=== PATIENT | female | born 1990 | race American Indian/Alaskan Native ===

== ENCOUNTER 2022-02-13 18:36 | Emergency (ER) | payer MEDICAID ==
--- NOTE | 2022-02-13 20:54 | XRay Report ---
Right foot 3 views INDICATION: Foot injury FINDINGS: MTP joints and IP joints appear normal. Midfoot alignment appears normal. Calcaneal brodie poe Signer Name: Jimbo Thayer MD Signed: 02/13/2022 8:50 PM Workstation Name: [id number]
--- NOTE | 2022-02-13 22:52 | Emergency Department Report ---
ED Lower Extremity HPI - General Chief Complaint: Extremity Injury, Lower Stated Complaint: TOE PAIN Time Seen by Provider: 02/13/22 20:46 Source: patient, EMS Mode of arrival: Stretcher Limitations: No Limitations - History of Present Illness Initial Comments: 31-year-old [place] female presents to the emergency department complaining of right foot pain which occurred after she was walking at home and had blunt trauma to the anterior aspect of her right foot striking the fourth and fifth toe in a crushing like fashion sending pain radiating across the lateral aspect of the foot. Since the incident pain has been dull throbbing worse with palpation and range of motion and movement as well as weightbearing. Pulses 2+ she reports mild swelling but no broken skin. No numbness or tingling is appreciated. -: Sudden Injury: Foot: Right Type of Injury: blunt Place: home Severity: mild Improves With: nothing Worsens With: nothing Context: direct blow Associated Symptoms: swelling - Related Data Previous Rx's Medication Instructions Recorded Last Taken Type Ketorolac [Toradol] 10 mg PO Q6H PRN #14 02/13/22 Unknown Rx Allergies Allergy/AdvReac Type Severity Reaction Status Date / Time No Known Allergies Allergy Verified 02/13/22 18:39 ED Review of Systems ROS: Stated complaint: TOE PAIN Other details as noted in HPI Comment: All other systems reviewed and negative ED Past Medical Hx - Medications Home Medications: Home Medications Medication Instructions Recorded Confirmed Last Taken Type Ketorolac [Toradol] 10 mg PO Q6H PRN #14 02/13/22 Unknown Rx ED Physical Exam - General Limitations: No Limitations General appearance: alert, in no apparent distress - Head Head exam: Present: atraumatic, normocephalic - Eye Eye exam: Present: normal appearance, PERRL Pupils: Present: normal accommodation - ENT ENT exam: Present: normal exam, mucous membranes moist, TM's normal bilaterally - Neck Neck exam: Present: normal inspection, full ROM. Absent: tenderness, meningismus, lymphadenopathy, thyromegaly - Respiratory Respiratory exam: Present: normal lung sounds bilaterally. Absent: respiratory distress - Cardiovascular Cardiovascular Exam: Present: regular rate, normal rhythm. Absent: systolic murmur, diastolic murmur, rubs, gallop - GI/Abdominal GI/Abdominal exam: Present: soft, normal bowel sounds - Extremities Exam Extremities exam: Present: normal inspection, tenderness, normal capillary refill - Expanded Lower Extremity Exam Right Foot/Toe exam: Present: tenderness (Lateral right foot along the fifth metatarsal and metatarsophalangeal joint), swelling. Absent: laceration, ecchymosis, erythema, puncture wound, calcaneal tenderness Neuro vascular tendon exam: Present: no vascular compromise. Absent: pulse deficit, abnormal cap refill - Back Exam Back exam: Present: normal inspection. Absent: CVA tenderness (R), CVA tenderness (L) - Neurological Exam Neurological exam: Present: alert, oriented X3, CN II-XII intact - Psychiatric Psychiatric exam: Present: normal affect, normal mood - Skin Skin exam: Present: warm, dry, intact, normal color. Absent: rash ED Course Vital Signs 02/13/22 18:37 Temperature 98.6 F Pulse Rate 109 H Blood Pressure 118/76 [Left] O2 Sat by Pulse 98 Oximetry ED Lower Extremity MDM - Radiology Data Radiology results: report reviewed [facility] [address] [place] [address] XRay Report Signed Patient: MIRANDA SANCHEZ MR#: [id number] 73 : 1990 Acct:[id number] Age/Sex: 31 / F ADM Date: 02/13/22 Loc: ED Attending Dr: Ordering Physician: DWIGHT HUMPHREY MD Date of Service: 02/13/22 Procedure(s): XR foot 3+V RT Accession Number(s): [id number] cc: ED MD MILAG[place] Fluoro Time In Minutes: Right foot 3 views INDICATION: Foot injury FINDINGS: MTP joints and IP joints appear normal. Midfoot alignment appears normal. Calcaneal spurring. Signer Name: Jimbo Zabala MD Signed: 02/13/2022 8:50 PM Workstation Name: [id number] Transcribed By: NANCY Dictated By: CIPRIANO ZABALA MD Electronically Authenticated By: CIPRIANO ZABALA MD Signed Date/Time: 02/13/222049 DD/ 49 TD/TT: Critical care attestation.: If time is entered above; I have spent that time in minutes in the direct care of this critically ill patient, excluding procedure time. ED Disposition Clinical Impression: Contusion of foot, right, Calcaneal spur, right Disposition: 01 HOME / SELF CARE / HOMELESS Is pt being admited?: No Does the pt Need Aspirin: No Condition: Stable Instructions: Foot Contusion, [id number], Heel Spur, Contusion, Crush Injury of the Foot, How to Use Cold Therapy Prescriptions: Ketorolac [Toradol] 10 mg PO Q6H PRN #14 PRN Reason: Pain Referrals: [facility] [Provider Group] - 3-5 Days
[2022-02-13 23:31] VITALS: BP 133/77
== END 2022-02-13 23:31 | disposition home or self-care (01) ==
LOC: ED 18:36
DX: S90.31XA Contusion of right foot, initial encounter (principal); W22.8XXA Striking against or struck by other objects, initial encounter; Y93.89 Activity, other specified; Y92.89 Other specified places as the place of occurrence of the external cause; Y99.8 Other external cause status
CPT/HCPCS: 99283